=== PATIENT | female | born 1975 ===

== ENCOUNTER → 2025-10-08 09:00 | Outpatient (CLI) | payer OTHER ==
[2025-10-08 10:11] LABS: BASO % 0.9 % (0.1-1.2); EOS # 0.12 (0.04-0.54); EOS % 2.1 % (0.7-7.0); LYMPH # 2.00 (1.18-3.74); LYMPH % 34.8 % (19.3-53.1); MEAN PLATELET VOLUME 10.70 fl (9.4-12.4); MONO # 0.42 (0.24-0.82); MONO % 7.3 % (4.7-12.5); NEUT # 3.14 (1.56-6.13); NEUT % 54.6 % (34.0-71.1); RED CELL DISTRIBUTION WIDTH 13.4 % (11.6-14.4)
[2025-10-08 10:17] LABS: URINE APPEARANCE Clear; URINE BILIRRUBIN Negative (NEGATIVE); URINE BLOOD Trace; URINE COLOR Yellow; URINE GLUCOSE Negative (NEGATIVE); URINE KETONE Negative (NEGATIVE); URINE LEUKOCYTE Negative; URINE NITRATE Negative; URINE PROTEIN Negative (NEGATIVE); URINE UROBILINOGEN 0.2 E.U./dl
[2025-10-08 10:23] LABS: URINE BACTERIA 146.4 uL (0.0-1933); URINE EPITHELIAL CELLS 2.4 uL (0.0-38.8); URINE RBC 2.3 uL (0.0-20.8)
[2025-10-08 10:38] LABS: URINE CAST 0.14 uL (0.0-1.40); URINE WBC 1.0 uL (0.0-23.2)
[2025-10-08 10:47] LABS: ob NEGATIVE (NEGATIVE)
[2025-10-08 10:48] LABS: ALT/SGPT 30.0 U/L (12-78); AST/SGOT 13.0 U/L (15-37); BILIRUBIN TOTAL 0.44 mg/dL (0.3-1.2); BUN CREA RATIO 22.0 (7.0-25.0); CHOL HDL RATIO 3.5 (0-5.0); CREATININE SERUM 0.67 mg/dL (0.55-1.02); GFR 94.34; GLOBULINA 3.1 G/DL (2.4-3.5); GLUCOSE FASTING 102.0 mg/dL (65-100); HDL 53.0 mg/dl (40-60); LDL 115.0 mg/dl (0-130); OSMOLALITY SERUM 288.0 MOSM/KG (275-295); TSH 0.798 uIU/mL (0.358-3.74); VLDL 18.0 (0-39)
[2025-10-09 10:07] LABS: hav igm Negative (Negative); hep b c Negative (Negative); hep b s ag Negative (Negative)
[2025-10-10 16:11] LABS: chla t Negative (Negative); neiss Negative (Negative)
== END | disposition home or self-care (01) ==
LOC: LAB 09:00
DX: N63.0 Unspecified lump in unspecified breast (principal); Z12.31 Encounter for screening mammogram for malignant neoplasm of breast; Z12.4 Encounter for screening for malignant neoplasm of cervix; Z12.11 Encounter for screening for malignant neoplasm of colon; Z13.228 Encounter for screening for other metabolic disorders; Z11.59 Encounter for screening for other viral diseases; Z00.00 Encounter for general adult medical examination without abnormal findings

== ENCOUNTER 2025-10-08 10:21 | Outpatient (CLI) | payer OTHER | END 2025-10-08 10:33 | disposition home or self-care (01) | LOC: MAMO-SONO 10:21 | DX: M25.561 Pain in right knee (principal); M25.562 Pain in left knee; Z12.31 Encounter for screening mammogram for malignant neoplasm of breast; N63.0 Unspecified lump in unspecified breast ==